=== PATIENT | female | born 1935 | race Two or more races ===

== ENCOUNTER 2021-04-15 06:33 | Day surgery (SDC) | payer OTHER | END 2021-04-15 13:00 | disposition home or self-care (01) | LOC: AMB-ENDOS 06:33 | PROVIDERS: ATTEND Surgery | DX: D12.3 Benign neoplasm of transverse colon (principal); K64.8 Other hemorrhoids ==

== ENCOUNTER 2024-09-07 12:13 | Outpatient (CLI) | payer OTHER | END 2024-09-07 12:18 | disposition home or self-care (01) | LOC: MAMO-SONO 12:13 | PROVIDERS: ATTEND Specialist | DX: N60.11 Diffuse cystic mastopathy of right breast (principal); N60.12 Diffuse cystic mastopathy of left breast; Z12.31 Encounter for screening mammogram for malignant neoplasm of breast ==